=== PATIENT | male | born 1965 | race Caucasian/White ===

== ENCOUNTER 2018-04-01 10:59 | Emergency (ER) | payer OTHER ==
[~2018-04-01] VITALS: Ht 170.2 cm; Wt 81.6 kg
--- NOTE | 2018-04-01 11:15 | NUR ---
PETIT MAL SEIZURE X 1 EPISODDE 4 DAYS [facility], NAD NOTED, VSS, RESP EVEN AND UNLABORED, PT WAS PUT ON MONITOR, AT BS.
--- NOTE | 2018-04-01 11:37 | NUR ---
PAGED DR.HART KAUFMAN (NEUROLOGIST AT [facility]) AT [phone]
[2018-04-01 11:43] LABS: BASOPHILS % (AUTO) 0.4 % (0.0-2.0); EOSINOPHILS % (AUTO) 0.2 % (0.0-6.0); HEMATOCRIT 45 % (39-51); HEMOGLOBIN 15.4 g/dL (13.5-17.5); LYMPHOCYTES # (AUTO) 1.8 /CMM (0.8-4.8); LYMPHOCYTES % (AUTO) 19.1 % (20.0-44.0); MEAN CORPUSCULAR HGB CONC 35 g/dl (31.0-36.0); MEAN CORPUSCULAR VOLUME 89 fL (80-96); MONOCYTES # (AUTO) 0.8 /CMM (0.1-1.30); MONOCYTES % (AUTO) 8.5 % (2.0-12.0); NEUTROPHILS # (AUTO) 6.6 /CMM (1.8-8.9); NEUTROPHILS % (AUTO) 71.8 % (43.0-81.0); PLATELET COUNT (AUTO) 366 /CMM (150-450); RDW COEFFICIENT OF VARIATION 12.3 (11.5-15.0); RED BLOOD CELL COUNT(AUTO) 5.03 MIL/uL (4.5-6.0); WHITE BLOOD COUNT (AUTO) 9.2 K/uL (4.3-11.0)
[2018-04-01 11:53] LABS: CALCIUM, SERUM 9.7 mg/dL (8.5-10.1); POTASSIUM 3.8 mmol/L (3.5-5.1)
[2018-04-01 11:58] LABS: ALBUMIN 4.6 g/dL (3.4-5.0); BILIRUBIN,TOTAL 0.7 mg/dL (0.2-1.0); TOTAL PROTEIN, SERUM 8.6 g/dL (6.4-8.2)
[2018-04-01 12:38] VITALS: BP 133/74
--- NOTE | 2018-04-01 12:38 | NUR ---
Patient discharged to home in stable condition. Written and verbal after care instructions given. Patient verbalizes understanding of instruction.
== END 2018-04-01 12:40 | disposition home or self-care (01) ==
LOC: ER 11:00
DX: Z13.89 Encounter for screening for other disorder (principal); F30.9 Manic episode, unspecified; G40.909 Epilepsy, unspecified, not intractable, without status epilepticus
CPT/HCPCS: 36415; 80053; 82542; 85025; 99284; A4606; Z7610

== ENCOUNTER 2024-07-02 14:22 | Emergency (ER) | payer BC, OTHER ==
[~2024-07-02] VITALS: Ht 175.3 cm; Wt 83.5 kg
[2024-07-02 14:27] VITALS: TEMP 98
[2024-07-02] MEDS ORDERED: LIDOCAINE HCL/MPF 1% 30 ML VIAL IJ ONE (14:33)
[2024-07-02] MEDS ORDERED: TDAP [DIPH/PERTUSSIS/TET] 0.5 ML VIAL IM ONE (15:02)
[2024-07-02] MEDS: LIDOCAINE 1% INJ 50 ML MDV IJ ONE (15:17)
[2024-07-02] MEDS: TDAP [DIPH/PERTUSSIS/TET] 0.5 ML VIAL IM ONE (15:24)
[2024-07-02 15:37] VITALS: BP 133/71; O2SAT 99
== END 2024-07-02 14:40 | disposition home or self-care (01) ==
LOC: ER 14:26
DX: S61.011A Laceration without foreign body of right thumb without damage to nail, initial encounter (principal); G40.909 Epilepsy, unspecified, not intractable, without status epilepticus; W26.8XXA Contact with other sharp object(s), not elsewhere classified, initial encounter; Y93.89 Activity, other specified; Y92.098 Other place in other non-institutional residence as the place of occurrence of the external cause; Y99.8 Other external cause status
CPT/HCPCS: 99283; 12001; 90471; 90715; J3490

== ENCOUNTER 2024-07-12 08:04 | Emergency (ER) | payer BC ==
[~2024-07-12] VITALS: Ht 175.3 cm; Wt 72.6 kg
[2024-07-12 08:11] VITALS: BP 118/72; TEMP 97.7
--- NOTE | 2024-07-12 08:14 | NUR ---
THE PATIENT BIBS FOR RIGHT THUMB SUTURE REMOVAL. NO S/S INFECTION NOTED. DENIES PAIN.
[2024-07-12 08:15] VITALS: O2SAT 99
--- NOTE | 2024-07-12 08:15 | NUR ---
Patient discharged to home in stable condition. Written and verbal after care instructions given. Patient verbalizes understanding of instruction.
== END 2024-07-12 08:24 | disposition home or self-care (01) ==
LOC: ER 08:08
DX: S61.011D Laceration without foreign body of right thumb without damage to nail, subsequent encounter (principal); G40.909 Epilepsy, unspecified, not intractable, without status epilepticus; Z48.02 Encounter for removal of sutures; X58.XXXD Exposure to other specified factors, subsequent encounter

== ENCOUNTER 2024-07-14 08:02 | Emergency (ER) | payer BC ==
[~2024-07-14] VITALS: Ht 175.3 cm; Wt 82.6 kg
[2024-07-14 08:13] VITALS: BP 136/69; TEMP 98.1; O2SAT 100
== END 2024-07-14 08:40 | disposition home or self-care (01) ==
LOC: ER 08:08
DX: S61.411D Laceration without foreign body of right hand, subsequent encounter (principal); G40.909 Epilepsy, unspecified, not intractable, without status epilepticus; Z48.00 Encounter for change or removal of nonsurgical wound dressing; X58.XXXD Exposure to other specified factors, subsequent encounter